=== PATIENT | female | born 1995 | race African-American/Black ===

== ENCOUNTER 2022-08-17 12:44 | Outpatient (CLI) | payer OTHER ==
--- NOTE | 2022-08-18 13:14 | MRI Report ---
PROCEDURE: BRAIN WO INDICATIONS: DIZZINESS TECHNIQUE: Noncontrast axial T1 spin echo, axial T2 fast spin echo, sagittal and axial FLAIR, coronal T2 fast sp in echo, axial gradient echo, axial diffusion and ADC through the brain. COMPARISON: None. FINDINGS: Image quality: Excellent. CSF Spaces: Basal cisterns are patent. No extra-axial fluid collections. Ventricles are normal in size and shape. Brain: No intracranial masses or hemorrhage. Otussaint/white matter interface is normal. Brainstem appe ars normal. Diffusion-weighted images demonstrate no acute ischemic insult. No chronic ischemic ins ults. Normal intravascular flow voids are present. In this patient with this given history, scrutiny is given to the cerebellopontine angle cisterns and to the internal auditory canals. To the limits of this standard protocol study, no masses can be see n within these regions. Skull and face: Calvarium has normal marrow signal. Orbits appear normal. Sinuses: Sinuses and mastoids are clear. IMPRESSION: No imaging explanation is found for the patient's presenting symptoms. Reviewed by: Des Jay MD on 08/18/2022 12:13 PM ALVINO Approved by: Des Jay MD on 08/18/2022 12:13 PM ALVINO Station ID: [id number]
== END 2022-08-17 12:45 | disposition home or self-care (01) ==
LOC: DI 12:44
PROVIDERS: ATTEND Physician Assistant
DX: R42 Dizziness and giddiness (principal); H55.89 Other irregular eye movements

== ENCOUNTER 2023-04-05 08:00 | Outpatient (CLI) | payer OTHER ==
[2023-04-06 10:03] LABS: BILIRUBIN,URINE NEGATIVE (NEGATIVE); CLARITY,URINE HAZY (CLEAR); GLUCOSE, URINE (UA) NEGATIVE (NEGATIVE); KETONES,URINE (UA) NEGATIVE (NEGATIVE); LEUKOCYTE ESTERASE, URINE NEGATIVE (NEGATIVE); NITRITE,URINE NEGATIVE (NEGATIVE); OCCULT BLOOD,URINE NEGATIVE (NEGATIVE); PROTEIN,URINE NEGATIVE (NEGATIVE); UROBILINOGEN,URINE 0.2 (NORMAL) E.U./dL (NORMAL)
[2023-04-06 10:22] LABS: BACTERIA,URINE Moderate /HPF (None Seen); CRYSTALS,URINE 3-5 Calcium Oxalate /LPF; RBC,URINE 0-5 /HPF (0-5); SQUAMOUS EPITHELIAL CELL,UR MOD Squamous (<= Few)
== END 2023-04-05 08:01 | disposition home or self-care (01) ==
LOC: LAB.WC 08:00
PROVIDERS: ATTEND Obstetrics & Gynecology
DX: Z34.90 Encounter for supervision of normal pregnancy, unspecified, unspecified trimester (principal)
CPT/HCPCS: 81001; 87086

== ENCOUNTER 2023-04-12 11:31 | Outpatient (CLI) | payer OTHER ==
[2023-04-12 12:22] LABS: BASOPHILS # (AUTO) 0.1 10^3/uL (0.0-0.1); BASOPHILS % (AUTO) 0.6 %; EOSINOPHILS # (AUTO) 0.1 10^3/uL (0.0-0.7); EOSINOPHILS % (AUTO) 0.6 %; HCT - HEMATOCRIT 36.1 % (37.0-47.0); HGB - HEMOGLOBIN 12.6 g/dL (12.0-16.0); LYMPHOCYTES # (AUTO) 2.5 10^3/uL (1.5-3.5); LYMPHOCYTES % (AUTO) 26.2 %; MEAN CORPUSCULAR HEMOGLOBIN 29.7 pg (27.0-31.0); MEAN CORPUSCULAR HGB CONC 34.9 g/dL (32.0-36.0); MEAN CORPUSCULAR VOLUME 85.1 fL (81.0-99.0); MEAN PLATELET VOLUME 9.6 fL (7.9-10.8); MONOCYTES # (AUTO) 0.7 10^3/uL (0.0-1.0); MONOCYTES % (AUTO) 7.4 %; NEUTROPHILS # (AUTO) 6.3 10^3/uL (1.5-6.6); NEUTROPHILS % (AUTO) 64.9 %; PLT - PLATELET COUNT 320 10^3/uL (130-450); RED BLOOD COUNT 4.24 10^6/uL (4.20-5.40); RED CELL DISTRIBUTION WIDTH 11.9 % (12.0-15.0); WHITE BLOOD COUNT 9.6 x10^3/uL (4.8-10.8)
--- NOTE | 2023-04-12 12:22 | Ultrasound Report ---
PROCEDURE: OB 1st Trimester w/TV INDICATIONS: POSITIVE TEST OUTSIDE/PRIOR DATING DATA: Last menstrual period (LMP): 02/06/2023. LMP-based estimated date of delivery (CARIDAD): 11/13/2023. First dating scan (date and location): Today's exam. Estimated date of delivery (CARIDAD) from first dating scan: 11/09/2023. TECHNIQUE: Real-time scanning was performed of the fetus and maternal pelvic organs, with image documentation. Endovaginal scanning was also performed to better visualize the fetus and maternal ovaries. COMPARISON: None. FINDINGS: Intrauterine gestational sac present. Embryo: Present, measuring 2.97 cm, corresponding to 9 weeks 6 days Heart rate: 136 bpm. Other: No perigestational fluid collection. Measurement variability in dating: +/- 4 weeks by LMP, +/- 7 days by mean sac diameter (use before 6 weeks gestation if crown-rump length not able to be measured), +/- 5 days by crown-rump length (6-12 weeks gestation). Maternal organs: Left ovary not visualized due to overlying bowel gas. Right-sided corpus luteum. IMPRESSION: Single living intrauterine at 9 weeks 6 days, CARIDAD of 11/09/2023. Reviewed by: Deepak Rodriguez MD on 04/12/2023 12:21 PM PST Approved by: Deepak Rodriguez MD on 04/12/2023 12:21 PM PST Station ID: [id number]
[2023-04-13 04:19] LABS: HBsAG SCREEN Negative (Negative)
[2023-04-13 06:12] LABS: RPR Non Reactive (Non Reactive)
[2023-04-13 09:10] LABS: HCV AB Non Reactive (Non Reactive); HIV SCREEN 4TH GENERATION Non Reactive (Non Reactive)
[2023-04-13 12:09] LABS: VARICELLA-ZOSTER AB IGG <135 index (Immune >165)
== END 2023-04-12 11:32 | disposition home or self-care (01) ==
LOC: DI 11:31
PROVIDERS: ATTEND Obstetrics & Gynecology
DX: Z34.91 Encounter for supervision of normal pregnancy, unspecified, first trimester (principal)
CPT/HCPCS: 36415; 85025; 86592; 86762; 86787; 86803; 86850; 86900; 86901; 87340; 87389

== ENCOUNTER 2023-05-03 08:00 | Outpatient (CLI) | payer OTHER ==
[2023-05-03 20:52] LABS: CHLAMYDIA TRACHOMATIS DNA NEGATIVE (NEGATIVE); NEISSERIA GONORRHOEAE DNA NEGATIVE (NEGATIVE); TRICHOMONAS VAGINALIS DNA NEGATIVE (NEGATIVE)
== END 2023-05-03 23:59 | disposition home or self-care (01) ==
LOC: LAB.WC 08:00
PROVIDERS: ATTEND Obstetrics & Gynecology
DX: Z11.3 Encounter for screening for infections with a predominantly sexual mode of transmission (principal)
CPT/HCPCS: 86695; 86696; 87491; 87591; 87661

== ENCOUNTER 2023-05-03 14:02 | Outpatient (CLI) | payer OTHER ==
[2023-05-04 10:09] LABS: HSV 1 IGG TYPE SPEC 9.25 index (0.00-0.90); HSV 2 IGG TYPE SPEC 9.57 index (0.00-0.90)
== END 2023-05-03 14:03 | disposition home or self-care (01) ==
LOC: LAB 14:02
PROVIDERS: ATTEND Obstetrics & Gynecology
DX: Z11.3 Encounter for screening for infections with a predominantly sexual mode of transmission (principal)
CPT/HCPCS: 86695; 86696

== ENCOUNTER 2023-05-31 14:10 | Outpatient (CLI) | payer OTHER ==
[2023-06-02 21:08] LABS: GEST. AGE ON COLLECTION DATE 16.3 weeks (.); INSULIN DEP DIABETES No (.); MATERNAL AGE AT EDD 28.8 yr (.); MULTIPLE GESTATION No (.); OPEN SPINA BIFIDA RISK 1 IN 2555 (.); RACE Black (.); RESULTS Report (.); TEST RESULTS *Screen Negative* (.); WEIGHT 139 lbs (.)
== END 2023-05-31 14:11 | disposition home or self-care (01) ==
LOC: LAB 14:10
PROVIDERS: ATTEND Obstetrics & Gynecology
DX: Z34.90 Encounter for supervision of normal pregnancy, unspecified, unspecified trimester (principal)
CPT/HCPCS: 36415; 82105

== ENCOUNTER 2023-06-27 08:08 | Outpatient (CLI) | payer OTHER ==
--- NOTE | 2023-06-27 17:32 | Ultrasound Report ---
PROCEDURE: OB Anatomy Scan INDICATIONS: SUPERVISION OF OUTSIDE/PRIOR DATING DATA: Last menstrual period (LMP): 02/06/2023. LMP-based estimated date of delivery (CARIDAD): 11/13/2023. First dating scan (date and location): 04/12/2023. Estimated date of delivery (CARIDAD) from first dating scan: 11/09/2023. The below data below was generated using the clinical CARIDAD of 11/13/2023 TECHNIQUE: Real-time scanning was performed of the fetus, with image documentation and biometric measurements. COMPARISON: 04/12/2023 FINDINGS: General: A single living intrauterine gestation is present. Presentation: Vert Placenta: Placental position is posterior, without previa. Amniotic fluid index: 13.6 cm, within normal limits for gestational age. heart rate: 143 beats per minute. Maternal cervical canal: 4.4 cm long; normal length is 2.5 cm or more. biometrics: Biparietal diameter: 5.0 cm 21 weeks 0 days 82nd percentile Head circumference: 18.0 cm 20 weeks 3 days 56th percentile Abdominal circumference: 15.1 cm 20 weeks 3 days 53rd percentile Femur length: 3.3 cm 20 weeks 1 day 43rd percentile Estimated gestational age from initial scan: 20 weeks 1 day Composite gestational age from present scan: 20 weeks 2 days Estimated weight and percentile: 347 g 56th percentile Measurement variability in biometric dating: +/- 10 days from 12-20 weeks gestation, +/- 2 weeks from 20-30 weeks gestation, +/- 3 weeks at 30 weeks gestation or later. Anatomic survey: Neuro: Ventricles are normal at less than 10 mm. Cisterna magna is normal at 3-11 mm. Cerebellum i s normal in size and morphology. Nuchal skin fold: Normal at less than 6 mm between 14 and 20 weeks gestational age. Face: Nose and lips, facial profile are normal. Spine: No evidence for spina bifida. Heart: 4-chambered heart is present, with normal ventricular outflow tracts. Diaphragm: Diaphragm is intact. Stomach: Left-sided stomach is present. Kidneys: No hydronephrosis. Normal is less than 5 mm in 2nd trimester, less than 7 mm in 3rd trimester. Cord: 3 vessel cord has orthotopic insertion. Bladder: Normal in size. Extremities: All 4 extremities are visualized. Miscellaneous right ovarian corpus luteal cyst. IMPRESSION: Single live intrauterine with gestational age of 20 weeks 2 days. Anatomy is within normal limits. Reviewed by: Gissel Duggan MD on 06/27/2023 5:31 PM PDT Approved by: Gissel Duggan MD on 06/27/2023 5:31 PM PDT Station ID: [id number]
== END 2023-06-27 08:09 | disposition home or self-care (01) ==
LOC: DI 08:08
PROVIDERS: ATTEND Obstetrics & Gynecology
DX: Z34.92 Encounter for supervision of normal pregnancy, unspecified, second trimester (principal); Z36.89 Encounter for other specified antenatal screening

== ENCOUNTER 2023-08-23 12:07 | Outpatient (CLI) | payer OTHER ==
[2023-08-23 13:18] LABS: HCT - HEMATOCRIT 35.3 % (37.0-47.0); HGB - HEMOGLOBIN 11.9 g/dL (12.0-16.0); MEAN CORPUSCULAR HEMOGLOBIN 30.2 pg (27.0-31.0); MEAN CORPUSCULAR HGB CONC 33.7 g/dL (32.0-36.0); MEAN CORPUSCULAR VOLUME 89.6 fL (81.0-99.0); MEAN PLATELET VOLUME 9.5 fL (7.9-10.8); RED BLOOD COUNT 3.94 10^6/uL (4.20-5.40); RED CELL DISTRIBUTION WIDTH 12.6 % (12.0-15.0); WHITE BLOOD COUNT 14.8 x10^3/uL (4.8-10.8)
[2023-08-24 08:10] LABS: RPR Non Reactive (Non Reactive)
== END 2023-08-23 12:08 | disposition home or self-care (01) ==
LOC: LAB 12:07
PROVIDERS: ATTEND Obstetrics & Gynecology
DX: Z34.90 Encounter for supervision of normal pregnancy, unspecified, unspecified trimester (principal)
CPT/HCPCS: 36415; 82950; 85027; 86592

== ENCOUNTER 2023-08-30 08:18 | Outpatient (CLI) | payer OTHER ==
[2023-08-30 09:19] LABS: GTT GLUCOSE,FASTING 81 mg/dL (74-109)
[2023-08-30 09:20] LABS: ALBUMIN 3.4 g/dL (3.2-5.5); BILIRUBIN,TOTAL 0.4 mg/dL (0.2-1.0); CALCIUM 9.5 mg/dL (8.5-10.3); CREATININE 0.6 mg/dL (0.6-1.3); POTASSIUM 3.7 mmol/L (3.5-4.5); TOTAL PROTEIN 6.7 g/dL (6.4-8.9)
[2023-08-30 09:57] LABS: ESTIMATED AVERAGE GLUCOSE 91 mg/dL (70-100); HEMOGLOBIN A1c% 4.8 % (4.27-6.07)
[2023-08-30 12:52] LABS: CREATININE,URINE 92.9 mg/dL; PROTEIN/CREATININE RATIO,URINE 0.1 (<=0.2)
[2023-08-31 05:13] LABS: RPR Non Reactive (Non Reactive)
== END 2023-08-30 08:19 | disposition home or self-care (01) ==
LOC: LAB 08:18
PROVIDERS: ATTEND Obstetrics & Gynecology
DX: O99.810 Abnormal glucose complicating pregnancy (principal)
CPT/HCPCS: 36415; 80053; 82570; 82951; 82952; 83036; 84156; 86592

== ENCOUNTER 2023-10-17 13:54 | Outpatient (CLI) | payer OTHER ==
--- NOTE | 2023-10-17 19:22 | Ultrasound Report ---
PROCEDURE: OB Follow up INDICATIONS: GESTATIONAL DIABETES MELLITUS OUTSIDE/PRIOR DATING DATA: Last menstrual period (LMP): 02/06/2023. LMP-based estimated date of delivery (CARIDAD): 11/13/2023. First dating scan (date and location): 04/12/2023. Estimated date of delivery (CARIDAD) from first dating scan: 11/09/2023. The below data below was generated using the working CARIDAD of 11/13/2023 TECHNIQUE: Real-time scanning was performed of the fetus, with image documentation and biometric measurements. Endovaginal scanning: Not performed. COMPARISON: 04/12/2023, 06/27/2023 FINDINGS: General: A single living intrauterine gestation is present. Presentation: Vertex Placenta: Placental position is fundal, without previa. Amniotic fluid index: 9.3 cm, within normal limits for gestational age. heart rate: 137 beats per minute. Maternal cervical canal: Closed and measures 3.6 cm long; normal length is 2.5 cm or more. biometrics: Biparietal diameter: 8.57 cm, 34 weeks, 4 days, 16.6% Head circumference: 31.0 cm, 34 weeks, 4 days, 3.1% Abdominal circumference: 30.6 cm, 34 weeks, 4 days, 18.2% Femur length: 6.8 cm, 35 weeks, 0 day, 18.1% Estimated gestational age from initial scan: 36 weeks, 1 day Composite gestational age from present scan: 34 weeks, 5 days Estimated weight and percentile: 2493 g, 16.6% Measurement variability in biometric dating: +/- 10 days from 12-20 weeks gestation, +/- 2 weeks from 20-30 weeks gestation, +/- 3 weeks at 30 weeks gestation or more. Other: Not applicable. IMPRESSION: 1. Single live intrauterine gestation with fetus in vertex presentation. heart rate is 1 37 bpm . Normal LUPILLO at 9.3 cm. 2. Estimated weight is at 16.6%. Reviewed by: Adrián Marc MD on 10/17/2023 7:20 PM PDT Approved by: Adrián Marc MD on 10/17/2023 7:20 PM PDT Station ID: [id number]
== END 2023-10-17 13:55 | disposition home or self-care (01) ==
LOC: DI 13:54
PROVIDERS: ATTEND Nurse Practitioner
DX: O24.419 Gestational diabetes mellitus in pregnancy, unspecified control (principal); Z3A.34 34 weeks gestation of pregnancy

== ENCOUNTER 2023-10-18 08:00 | Outpatient (CLI) | payer OTHER | END 2023-10-18 23:59 | disposition home or self-care (01) | LOC: LAB.WC 08:00 | PROVIDERS: ATTEND Obstetrics & Gynecology | DX: Z36.85 Encounter for antenatal screening for Streptococcus B (principal); R03.0 Elevated blood-pressure reading, without diagnosis of hypertension | CPT/HCPCS: 36415; 80053; 85027; 87797 ==

== ENCOUNTER 2023-10-18 13:55 | Outpatient (CLI) | payer OTHER ==
[2023-10-18 14:06] LABS: HCT - HEMATOCRIT 36.3 % (37.0-47.0); HGB - HEMOGLOBIN 12.2 g/dL (12.0-16.0); MEAN CORPUSCULAR HEMOGLOBIN 29.8 pg (27.0-31.0); MEAN CORPUSCULAR HGB CONC 33.6 g/dL (32.0-36.0); MEAN CORPUSCULAR VOLUME 88.5 fL (81.0-99.0); MEAN PLATELET VOLUME 10.1 fL (7.9-10.8); RED BLOOD COUNT 4.1 10^6/uL (4.20-5.40); RED CELL DISTRIBUTION WIDTH 13.2 % (12.0-15.0); WHITE BLOOD COUNT 10.6 x10^3/uL (4.8-10.8)
[2023-10-18 14:20] LABS: ALBUMIN 3.4 g/dL (3.2-5.5); ALBUMIN/GLOBULIN RATIO 1.1 (1.0-2.2); BILIRUBIN,TOTAL 0.4 mg/dL (0.2-1.0); CALCIUM 9.4 mg/dL (8.5-10.3); CREATININE 0.7 mg/dL (0.6-1.3); POTASSIUM 3.9 mmol/L (3.5-4.5); TOTAL PROTEIN 6.6 g/dL (6.4-8.9)
== END 2023-10-18 13:56 | disposition home or self-care (01) ==
LOC: LAB 13:55
PROVIDERS: ATTEND Obstetrics & Gynecology
DX: R03.0 Elevated blood-pressure reading, without diagnosis of hypertension (principal)
CPT/HCPCS: 36415; 80053; 85027

== ENCOUNTER 2023-10-21 10:10 | Outpatient (CLI) | payer OTHER ==
[2023-10-21 10:44] VITALS: BP 127/81
--- NOTE | 2023-10-21 11:24 | PROCEDURE REPORT ---
- HPI Diagnosis/Indication for NST: Other (Gestational diabetes, gestational hypertension) Current EDU 11/13/23 Gestation 36 Weeks and 5 Days 2 Para 0 Vital Signs Temperature 98.2 F 10/21/23 10:26 Heart Rate 80 10/21/23 10:26 Respiratory Rate 15 10/21/23 10:26 Blood Pressure 128/76 10/21/23 10:26 Temperature 98.2 F 10/21/23 10:26 Heart Rate 80 10/21/23 10:26 Respiratory Rate 15 10/21/23 10:26 Blood Pressure 127/81 H 10/21/23 10:41 O2 Saturation If not protocol: Oxygen Flow, liters/minute - NST Procedure NST Procedure Start Date 10/21/23 Start Time 10:22 Stop Time 10:43 Vibroacoustic Stimulation Used No Patient States Movement Yes - Results and Plan Findings/Impression: NST reactive, Cat 1. Plan: We discussed elevated blood pressures noted at visits, meeting criteria for gestational hypertension. She denies symptoms of preeclampsia, labs normal at visit earlier in the week. We discussed recommendation for delivery at 37 wks in the setting of gestational hypertension and risks/benefits were reviewed. We discussed induction process. She does agree to proceed with IOL and is scheduled for Monday. Consents were signed. Preeclampsia/labor precautions were reviewed.
== END 2023-10-21 11:39 | disposition home or self-care (01) ==
LOC: WFO 10:10 → FBP 10:25 → WFO 11:39
PROVIDERS: ATTEND Obstetrics & Gynecology
DX: O13.3 Gestational [pregnancy-induced] hypertension without significant proteinuria, third trimester (principal); O24.419 Gestational diabetes mellitus in pregnancy, unspecified control; Z3A.36 36 weeks gestation of pregnancy
CPT/HCPCS: 59025

== ENCOUNTER 2023-10-23 07:54 | Inpatient (IN) | payer OTHER ==
[2023-10-23] MEDS ORDERED: lidocaine 1% 20 ML MDV ID PRN (08:05)
[2023-10-23] MEDS ORDERED: CARBOPROST TROMETHAMINE 250 MCG/ML VIAL IM PRN (08:05)
[2023-10-23] MEDS ORDERED: miSOPROStoL 200 MCG TABLET BC PRN (08:05)
[2023-10-23] MEDS ORDERED: TRANEXAMIC ACID IN NACL 1,000 MG/100 ML BAG IV PRN (08:05)
[2023-10-23] MEDS ORDERED: SODIUM CHLORIDE FLUSH 0.9% 10 ML SYRINGE IVP PRN (08:05)
[2023-10-23] MEDS ORDERED: OXYTOCIN 10 UNIT/ML VIAL IM PRN (08:05)
[2023-10-23] MEDS ORDERED: OXYTOCIN/SODIUM CHLORIDE 500 ML IV PRN (08:05)
[2023-10-23] MEDS ORDERED: METHYLERGONOVINE 0.2 MG/ML VIAL IM PRN (08:05)
[2023-10-23] MEDS ORDERED: ONDANSETRON 4 MG/2 ML VIAL IVP PRN (09:18)
[2023-10-23 10:20] LABS: BASOPHILS % (AUTO) 0.2 %; EOSINOPHILS # (AUTO) 0.1 10^3/uL (0.0-0.7); EOSINOPHILS % (AUTO) 0.6 %; HCT - HEMATOCRIT 39.9 % (37.0-47.0); HGB - HEMOGLOBIN 13.4 g/dL (12.0-16.0); LYMPHOCYTES # (AUTO) 2.1 10^3/uL (1.5-3.5); LYMPHOCYTES % (AUTO) 18.8 %; MEAN CORPUSCULAR HEMOGLOBIN 29.7 pg (27.0-31.0); MEAN CORPUSCULAR HGB CONC 33.6 g/dL (32.0-36.0); MEAN CORPUSCULAR VOLUME 88.5 fL (81.0-99.0); MEAN PLATELET VOLUME 10.1 fL (7.9-10.8); MONOCYTES # (AUTO) 0.8 10^3/uL (0.0-1.0); MONOCYTES % (AUTO) 7.5 %; NEUTROPHILS # (AUTO) 7.9 10^3/uL (1.5-6.6); NEUTROPHILS % (AUTO) 72.2 %; PLT - PLATELET COUNT 249 10^3/uL (130-450); RED BLOOD COUNT 4.51 10^6/uL (4.20-5.40); RED CELL DISTRIBUTION WIDTH 13.5 % (12.0-15.0)
[2023-10-23] MEDS: miSOPROStoL 100 MCG TABLET VG SCH (10:29)
[2023-10-23 10:30] LABS: CREATININE,URINE 43.8 mg/dL; PROTEIN/CREATININE RATIO,URINE 0.2 (<=0.2)
[2023-10-23 10:34] LABS: ALBUMIN 3.6 g/dL (3.2-5.5); BILIRUBIN,TOTAL 0.5 mg/dL (0.2-1.0); CREATININE 0.7 mg/dL (0.6-1.3); POTASSIUM 3.7 mmol/L (3.5-4.5); TOTAL PROTEIN 7.3 g/dL (6.4-8.9)
--- NOTE | 2023-10-23 10:54 | PHARMACY PROGRESS NOTE ---
- Best Possible Medication History Admit Date and Time: 10/23/23 0805 Processed by: Pharmacy Medications reviewed in ED?: No Medication History completed: Yes Patient Interview: Completed Secondary Source(s): Insurance records (Medication Reconciliation completed by [employer].) As the person ultimately responsible for medication therapy, providers are able to order a medication from an existing home medication list in [facility] via the "Reconcile Routine" prior to Confirmation of that medication by biomedical equipment support specialist. Such practice is discouraged except when the physician, in their clinical judgment, deems that a medical need exists for a medication without regard to previous use.
[2023-10-23] MEDS: SODIUM CHLORIDE FLUSH 0.9% 10 ML SYRINGE IVP SCH (12:16)
--- NOTE | 2023-10-23 17:23 | ANESTHESIA ---
Pre-Anesthesia VS, & Labs - Diagnosis Induction of labor - Procedure Vaginal delivery Vital Signs: Temp Pulse Resp BP Pulse Ox O2 Flow Rate 36.6 C 82 18 124/76 10/23/23 08:06 10/23/23 08:06 10/23/23 08:06 10/23/23 08:06 Height: 5 ft Weight (kg): 71.214 kg Body Mass Index: 30.7 BMI Classification: Obese - NPO Last Fluid Intake: clear liquids - Is Patient ?: Yes - Lab Results Current Lab Results: Laboratory Tests 10/23/23 14:23: POC Whole Bld Glucose 114 H 10/23/23 10:03: Sodium 136, Potassium 3.7, Chloride 104, Carbon Dioxide 23, Anion Gap 9.0, BUN 11, Creatinine 0.7, Estimated GFR (MDRD) 121, Glucose 158 H, Calcium 10.0, Total Bilirubin 0.5, AST 20, ALT 30, Alkaline Phosphatase 270 H, Total Protein 7.3, Albumin 3.6, Globulin 3.7, Albumin/Globulin Ratio 1.0 10/23/23 10:03: WBC 11.0 H, RBC 4.51, Hgb 13.4, Hct 39.9, MCV 88.5, MCH 29.7, MCHC 33.6, RDW 13.5, Plt Count 249, MPV 10.1, Neut # (Auto) 7.9 H, Lymph # (Auto) 2.1, [place] # (Auto) 0.8, Eos # (Auto) 0.1, Baso # (Auto) 0.0, Absolute Nucleated RBC 0.00, Nucleated RBC % 0.0 10/23/23 10:03: Blood Type O POSITIVE, Antibody Screen NEGATIVE Lab results reviewed: Yes Fish Bones: 10/23/23 10:03 10/23/23 10:03 Home Medications and Allergies Home Medications: Ambulatory Orders Cholecalciferol (Vitamin D3) [Vitamin D3] 25 mcg PO DAILY 10/23/23 valACYclovir [Valtrex] 500 mg PO BID 10/23/23 Active Medications Carboprost Tromethamine (Carboprost Tromethamine 250 Mcg/Ml Vial) 250 mcg IM Q15M PRN PRN Reason: Step 4: Hemorrhage protocol Fentanyl (Fentanyl 100 Mcg/2 Ml Vial) 50 mcg IVP Q2HR PRN PRN Reason: Severe Pain (Level 7-10) Oxytocin/Sodium Chloride (Pitocin/Sodium Chloride) 500 mls @ 999 mls/hr IV PRN PRN; Protocol PRN Reason: POST- HEMORR PREVENTION Stop: 10/28/23 08:06 Tranexamic Acid (Tranexamic 1,000 Mg/100ml-Nacl) 1,000 mg in 100 mls @ 600 mls/hr IV .ONCE PRN PRN Reason: EBL >1200mL and within 3hr Stop: 10/28/23 08:06 Lidocaine HCl (Lidocaine 1% 20 Ml Mdv) 20 ml ID .ONCE PRN PRN Reason: PERINEAL REPAIR Stop: 10/28/23 08:06 Methylergonovine Maleate (Methylergonovine 0.2 Mg/Ml Vial) 0.2 mg IM .ONCE PRN PRN Reason: Step 2: Hemorrhage protocol Stop: 10/28/23 08:06 Misoprostol (Misoprostol 200 Mcg Tablet) 800 mcg BC .ONCE PRN PRN Reason: Step 3: Hemorrhage protocol Stop: 10/28/23 08:06 Misoprostol (Misoprostol 100 Mcg Tablet) 25 mcg VG Q4H [facility] Last Admin: 10/23/23 14:17 Dose: 25 mcg Ondansetron HCl (Ondansetron 4 Mg/2 Ml Vial) 4 mg IVP Q4HR PRN PRN Reason: Nausea / Vomiting Oxytocin (Oxytocin 10 Unit/Ml Vial) 10 unit IM .ONCE PRN PRN Reason: Step one: If no IV access Stop: 10/28/23 08:06 Sodium Chloride (Sodium Chloride Flush 0.9% 10 Ml Syringe) 10 ml IVP 0100,0900,1700 [facility] Last Admin: 10/23/23 12:16 Dose: Not Given Sodium Chloride (Sodium Chloride Flush 0.9% 10 Ml Syringe) 10 ml IVP PRN PRN PRN Reason: NEEDED PER PROVIDER ORDERS Pnv No.121/Iron/Folic Acid [ Multivitamin Tablet] 1 each PO DAILY 10/17/23 Cholecalciferol (Vitamin D3) [Vitamin D3] 25 mcg PO DAILY 10/23/23 valACYclovir [Valtrex] 500 mg PO BID 10/23/23 Allergies/Adverse Reactions: Allergies Allergy/AdvReac Type Severity Reaction Status Date / Time No Known Drug Allergies Allergy Verified 10/17/23 12:43 Anes History & Medical History - Anesthetic History Anesthesia Complications: reports: No previous complications - Medical History Cardiovascular: reports: Other (gestational hypertension) Pulmonary: reports: None Gastrointestinal: reports: None Urinary: reports: None Neuro: reports: None Musculoskeletal: reports: None Endocrine/Autoimmune: reports: Other (Gestational diabetes) Blood Disorders: reports: None Skin: reports: None Smoking Status: Never smoker Psychosocial: reports: No issues indicated History of Cancer?: No - Surgical History General: reports: Other (hernia repair as a child) - Obstetrical History : 2 Parity: 0 Events: reports: Gestational diabetes Exam General: Alert, Oriented x3, Cooperative, No acute distress Dental: WNL Mouth Openin Fingerbreadth Neck Mobility: Normal Mallampati classification: II Thyromental Distance: 4-6 cm Mental/Cognitive Status: Alert/Oriented X3, Normal for patient Plan Anesthesia Type: Epidural Consent for Procedure(s) Verified and Reviewed: Yes Code Status: Attempt Resuscitation ASA classification: 2-Mild systemic disease Is this case an emergency?: No
--- NOTE | 2023-10-23 21:45 | HISTORY & PHYSICAL EXAMINATION ---
Admit History - Visit Reason Visit Reason: Other (induction for preeclampsia) - : 2 : 1 Care: positive: [facility] Risk/History: positive: None Complications This : positive: None, induced HTN Smoking Status: Never smoker - Mother's Labs GBS: positive: Group B Step Negative Rubella Status: positive: Immune - Other Maternal History Other Maternal History: presents today for labor induction at 37w 0d. labs normal. no PIH sx but bps have been sporadically elevated during 3rd trimester. Up again last visit on so here for induction today now that she is 37 weeks. consents reviewed and signed with Dr. Knox on . no headache, n/v. good movement. not swollen. last ultrasound done 10/17/23, report reviewed: FINDINGS: General: A single living intrauterine gestation is present. Presentation: Vertex Placenta: Placental position is fundal, without previa. Amniotic fluid index: 9.3 cm, within normal limits for gestational age. heart rate: 137 beats per minute. biometrics: Biparietal diameter: 8.57 cm, 34 weeks, 4 days, 16.6% Head circumference: 31.0 cm, 34 weeks, 4 days, 3.1% Abdominal circumference: 30.6 cm, 34 weeks, 4 days, 18.2% Femur length: 6.8 cm, 35 weeks, 0 day, 18.1% Estimated gestational age from initial scan: 36 weeks, 1 day Composite gestational age from present scan: 34 weeks, 5 days Estimated weight and percentile: 2493 g, 16.6% No Known Allergies Medications: Meds Reviewed: Done Valtrex 500 mg tablet (valacyclovir) TAKE 1 TABLET BY MOUTH TWICE A DAY * Vitamin * glucose test strips for qid testing for the rest of Blood Glucose Monitoring kit (blood-glucose meter) gestational diabetes, for qid testing for rest of Lancets, Super Thin (lancets) for qid testing for rest of Sharps Container (empty container) for use for lancet disposal cholecalciferol (vitamin D3) 50 mcg (2,000 unit) capsule (cholecalciferol (vitamin d3)) 1 capsule by mouth once a day Problems: Elevated blood pressure reading without diagnosis of hypertension (ICD-796.2) (MDW23-M44.0) then gestational hypertension screening for streptococcus B (ICD-V28.6) (IUP71-Z04.85) Gestational diabetes mellitus in , unspecified control (CQR73-U01.419) 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 not too sick. varicella non-immune Past Surgical History: umbilical Hernia repair at 5yo Vital Signs: Patient Profile: 28 Years Old Female Height: 60 inches Weight: 161 pounds BMI: 31.56 BP sittin / 74 Cuff size: regular Vitals Entered By: Yasmin FIERRO (October 18, 2023 1:00 PM) Meds Reviewed: Done Allergies Reviewed: Done No known allergies: T Urinalysis (Dipstick) Color: yellow Appearance: clear Leukocytes: negative Nitrites: negative Urobilinogen: negative Protein: negative Blood: negative Ketones: negative Bilirubin: negative Glucose: negative Method of Collection: Clean Catch Urine Culture Sent: No Patient on antibiotic: No Urine Results Entered By: Ellie Orellana RN (October 18, 2023 1:58 PM) Serial Vital Signs/Assessments: Time Position BP Pulse Resp Temp By 1:17 PM 137/67 Ellie Orellana RN 1333 133/65 Ellie Orellana RN Comments: 1333 Provider notified By: Ellie Orellana RN Flowsheet View for Follow-up Visit Estimated weeks of gestation: 36 2/7 Weight: 161 Blood pressure: 140 / 74 Urine Protein: negative Urine Glucose: negative Urine Nitrite: negative Urine Leuks: negative Headache: No Nausea/vomiting: No Edema: 0 FHR: NST Vaginal bleeding: no Vaginal discharge: no activity: yes Labor symptoms: no Next visit: 1 wk Comment: Reports she is feeling well, no concerns. Single mildly elevated BP today (140/74, repeated x2 and normal range). Urine negative for protein. Denies LIMA, vision changes, upper abdominal pain. Minimal swelling. Will go to lab for CBC, CMP. She also had elevated BPs at visits at 20 and 30wks, concerning for possible gHTN. Preeclampsia precautions reviewed. We have discussed possible delivery at 37wk. Ellie, RN will arrange NST for Sat on L&D and we can discuss IOL further at that time. BG log reviewed, overall doing well. No fasting values elevated, 08/23 postprandial values elevated. Growth US report reviewed, EFW 16%tile, vertex, normal LUPILLO. She is taking valtrex. GBS collected. - KML LMP: 02/06/23 CARIDAD by LMP: 11/13/23 US:04/22/2023 @ 9+6 CARIDAD by US 11/08 Final CARIDAD: 11/13/2023 by LMP Ayden is in [place], has 2 more years. Originally from [place]. FOB: Justin, just out of [employer] and going to [employer]. Together 2 years. 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 Will plan on prophylaxis at 34 to 36 weeks. A1DM Pre- Weight:137.4 BMI: 26.93 Blood type: O+ Antibody: Negative CBC: H/H 12.6/36.1 plt 320 RUB:Immune VZV:NON IMMUNE, informed. HBsAg: NEG HepC: NR RPR/AB-EIA: NR HIV:NR PAP:05/18/2020- DUE GC/CT:05/03 negative HSV: IgG 1 and 2 + 05/04/23. FOB + Genetic testing: AFP- negative Covid:X3 vax and had virus. declined spikevax Flu:2022 [facility] FAS:completed 06/26 Placenta: Posterior w/o previa Cord:3VC LUPILLO: 13.6 EFW: 347g 56th%ile 50gm OGCT:175 A1c 4.8 3HR GTT: 81 199, 182, 154- fail TDAP:08/22 Breast Pump:08/06 RPR- Negative 3rd trimester H/H 11.9/35.3 PLT - 245 GBS: Delivery plan: induction for gest htn Contraception: A: 1 IAB: 1 LMP: 02/06/2023 EDC: 11/13/2023 Height: 60 (10/11/2023 10:36:57 AM) Weight: 161 Weight (pre-): 137.4 (04/05/2023 1:36:47 PM) Chlamydia: NEGATIVE (05/03/2023 1:20:00 PM) Blood Type: O+ (04/12/2023 9:51:54 AM) RH Type: + (04/12/2023 9:52:04 AM) Last Antibody Screen: negative (04/12/2023 9:52:14 AM) Is pt sexually active? yes Chlamydia: NEGATIVE (05/03/2023 1:20:00 PM) RPR: Non Reactive (08/30/2023 8:38:00 AM) Last Pap: Normal (05/18/2020 10:55:09 AM) - HPI Current EDU 11/13/23 Gestation 37 Weeks and 0 Days 2 Vital Signs Temperature 97.9 F 10/23/23 08:06 Heart Rate 82 10/23/23 08:06 Respiratory Rate 18 10/23/23 08:06 Blood Pressure 124/76 10/23/23 08:06 Temperature 97.9 F 10/23/23 08:06 Heart Rate 82 10/23/23 08:06 Respiratory Rate 18 10/23/23 08:06 Blood Pressure 124/76 10/23/23 08:06 O2 Saturation If not protocol: Oxygen Flow, liters/minute - NST Procedure NST Procedure Start Time 10:22 Stop Time 10:43 - Results and Plan Findings/Impression: Reactive for of 32 weeks gestation or more. NST tracing contains at least two heart rate accelerations that are at least 15 beats per minute above the baseline rate and lasting at least 15 seconds from onset to return to baseline within a twenty minute period. Plan: proceed with labor induction Meds/Allgy - Home Medications Home Medications: Ambulatory Orders Medication Instructions Recorded Confirmed Pnv No.121/Iron/Folic Acid 1 each PO DAILY 10/17/23 10/23/23 [ Multivitamin Tablet] Cholecalciferol (Vitamin D3) 25 mcg PO DAILY 10/23/23 10/23/23 [Vitamin D3] valACYclovir [Valtrex] 500 mg PO BID 10/23/23 10/23/23 - Allergies Allergies/Adverse Reactions: Allergies Allergy/AdvReac Type Severity Reaction Status Date / Time No Known Drug Allergies Allergy Verified 10/17/23 12:43 Physical - Abdominal Exam Vital Signs: Temp Pulse Resp BP Pulse Ox O2 Flow Rate 97.9 F 82 18 124/76 10/23/23 08:06 10/23/23 08:06 10/23/23 08:06 10/23/23 08:06 Contraction Frequency (min/apart): irregular when she came in about every 7 min and not feeling them. Contraction Intensity: positive: Mild Uterine Resting Tone: positive: Soft - Monitoring Strip Review: positive: Category I - Presentation Presentation: positive: Vertex - Vaginal Exam Membranes: positive: Membranes intact Dilation (in cm): 4 Effacement (%): 100 Station: positive: -1 Cervical Position: positive: Midposition - Speculum Exam Speculum Exam Performed: positive: No - Other Notes Labor Progress Note/Additional Text: She has received miso x 2. she was haresh too much for more. I checked her at 6 pm. She was 4/80/-1 soft. uncomfortable with my exam. Since then she continues to be uncomfortable with frequent contractions. Plan for Labor - Plan For Labor I expect patient to be DC'd or transferred within 96 hours.: Yes Plan for Labor: once her partner returns from getting dinner, I will perform AROM and then augm ent with pitocin as needed. epidural prn. GBS neg gestational htn: continue to monitor bp. no severe range pressures. no elevated labs or preE sx. so no magnesium indicated for now. HSV - continue valtrex gdm - will check sugars every 4 hrs for now. every 2 in active labor. never required treatment.
--- NOTE | 2023-10-23 22:14 | PROVIDER PROGRESS NOTE ---
Labor Progress Note - Uterine Monitoring Uterine Monitoring Mode: positive: External toco Contraction Frequency (min/apart): 3 Contraction Intensity: positive: Mild to moderate Uterine Resting Tone: positive: Soft - Monitoring Monitor Mode: positive: External ultrasound Heart Rate Baseline: 135 Heart Rate Variability: positive: Moderate (6-25 bmp) Accelerations: positive: Present, 15x15 Decelerations: positive: None Strip Review: positive: Category I - Vaginal Exam Station: -2 (unable to reach to get my fingers into cervix.) - Labor Progress Note Labor Progress Note/Additional Text: took a bath and now contractions are uncomfortable but not painful. maybe could rest. cervix too posterior to reach. so unable to perform AROM plan: let her try to sleep. if unable to sleep or if contraction really slow down, start pitocin. epidural whenever she wants. bps are good. sugar fine. baby category 1. no sx of preE.
[2023-10-23] MEDS: valACYclovir 500 MG TABLET PO SCH (22:25)
[2023-10-24] MEDS: fentaNYL 100 MCG/2 ML VIAL IVP PRN (00:05)
[2023-10-24] MEDS: OXYTOCIN/SODIUM CHLORIDE 500 ML IV SCH (03:05)
[2023-10-24] MEDS: CHOLECALCIFEROL 25 MCG TABLET PO SCH (09:00)
[2023-10-24] MEDS: PRENATAL VITAMIN TABLET PO SCH (09:00)
--- NOTE | 2023-10-24 10:36 | PROVIDER PROGRESS NOTE ---
Labor Progress Note - Uterine Monitoring Contraction Intensity: positive: Mild to moderate Uterine Resting Tone: positive: Soft - Monitoring Monitor Mode: positive: External ultrasound Heart Rate Variability: positive: Moderate (6-25 bmp) Accelerations: positive: Present, 15x15 Decelerations: positive: None Strip Review: positive: Category I - Vaginal Exam Dilation (in cm): 5 Effacement (%): 80 Station: -2 Cervical Position: Posterior - Labor Progress Note Labor Progress Note/Additional Text: AROM with clear fluid. pitocin at 8. not painful with her contractions. but they are quite regular and have not done much in the last 18 hours. bps stable. sugars stable. plan: continue pitocin dosing as needed. hopefor later this afternoon.
[2023-10-24] MEDS ORDERED: LACTATED RINGERS 1,000 ML ONE (10:51)
[2023-10-24] MEDS: LACTATED RINGERS 1,000 ML IV ONE (10:53)
[2023-10-24] MEDS ORDERED: ROPIVACAINE 0.2% 200 MG/100 ML BAG EP ONE (11:12)
[2023-10-24] MEDS ORDERED: LIDOCAINE 2%-EPI 1:100000 20 ML MDV ONE (11:26)
[2023-10-24] MEDS ORDERED: ROPIVACAINE 0.2% 200 MG/100 ML BAG EP PRN (12:07)
[2023-10-24] MEDS ORDERED: ePHEDrine 50 MG/ML VIAL IVP PRN (12:07)
[2023-10-24] MEDS ORDERED: NALBUPHINE 10 MG/ML AMP IVP PRN (12:07)
[2023-10-24] MEDS ORDERED: diphenhydrAMINE INJ 50 MG/ML VIAL IVP PRN (12:07)
[2023-10-24] MEDS ORDERED: METOCLOPRAMIDE 10 MG/2 ML VIAL IVP PRN (12:07)
[2023-10-24] MEDS ORDERED: ONDANSETRON 4 MG/2 ML VIAL IVP PRN (12:07)
[2023-10-24] MEDS ORDERED: NALOXONE 0.4 MG/ML VIAL IVP PRN (12:07)
[2023-10-24] MEDS ORDERED: LIDOCAINE-MPF 1% 5 ML VIAL ONE (15:19)
[2023-10-24] MEDS: LACTATED RINGERS 1,000 ML IV SCH (15:23)
[2023-10-24] MEDS ORDERED: LIDOCAINE-MPF 2% 5 ML VIAL ONE (16:23)
[2023-10-24] MEDS ORDERED: WITCH HAZEL/GLYCERIN 1 PAD TOP PRN (18:20)
[2023-10-24] MEDS ORDERED: ACETAMINOPHEN 325 MG TABLET PO PRN (18:20)
--- NOTE | 2023-10-24 18:33 | DELIVERY NOTE ---
Delivery Note - Labor Labor: positive: Induced by oxytocin - Infant Delivery Method Delivery Method: positive: Spontaneous vaginal delivery - Cervical Ripening Method Cervical Ripening Method: positive: Misoprostil - Presentation Presentation: positive: Vertex - Nuchal Cord Nuchal Cord: positive: None - Anesthetic Anesthetic Type: - Episiotomy Type Episiotomy Type: positive: None - Laceration Laceration: positive: 1st degree, Labial, Perineal, Periurethral - Suture Suture Type: positive: Vicryl Suture Size: positive: 3-0 - Delivery Outcome Delivery Outcome: positive: Livebirth - sex: positive: Male - Cord Cord: positive: 3 vessels - Placenta Placenta: positive: Intact, Spontaneous - Estimated Blood Loss Estimated Blood Loss (in cc): 200 - Post Delivery Events Post Delivery Events: positive: No post delivery events - Delivery Comments (Free Text/Narrative) Delivery Comments (Free Text/Narrative): Patient presented for labor induction due to dx of gestational Htn at 37 weeks. no severe range bps or sx. labs normal. Once admitted, received miso x 3 vaignally 25 mcg. caused her some loose stool. Then she was haresh too much for more miso. took a bath, slept a while then oxytocin was started. in am AROM was performed. she was 5 cm. received epidural for pain management. oxytocin turned up to 10. Soon she was ready to push. we got her ready for delivery and she pushed for about 17 min to deliver her baby in OA position. FOB helped me deliver the baby and announce the baby's name and thus to the gender to Ayden and her family who was on the video phone in [place]. Baby is a boy. Cord was clamped and cut once there was a gush of blood from the vagina. Apgars were good, although RN did take baby to warmer to look at him better. She brought him back after about 5 min. Weight is still pending. Placenta delivered spontaneously. Oxytocin was infused in the IV bolus then turned down as uterus was contracted well and not bleeding. perineum has a small laceration, first degree. One mattress type stitch of 3-0 Vicryl Rapide was placed. there where bilateral periurethral/labia minora lacerations and these were not repaired as they were not bleeding and were quite superficial. EBL about 200 cc. no complications. Patient is resting with her baby boy Michael and partner.
[2023-10-25] MEDS: IBUPROFEN 600 MG TABLET PO SCH (00:37)
[2023-10-25] MEDS: DOCUSATE SODIUM 100 MG CAPSULE PO SCH (00:39)
--- NOTE | 2023-10-25 12:35 | PROVIDER PROGRESS NOTE ---
Subjective - Prog Note Date Prog Note Date: 10/25/23 Prog Note Time: 12:00 - Subjective Pt reports feeling: Improved Subjective: Comfortable. Appropriate lochia. Ambulating. Voiding. Tolerating regular diet. . Mood is good. Objective - Vital Signs/Intake & Output Vital Signs: Vital Signs x48h Temp Pulse Resp BP Pulse Ox 10/25/23 08:29 98.2 F 91 18 134/78 H 96 Intake & Output: Intake & Output 10/22/23 10/23/23 10/24/23 10/25/23 23:59 23:59 23:59 23:59 Intake Total 1200 1202.083 Output Total 350 Balance 1200 852.083 - Lab Results Fish Bones: 10/23/23 10:03 10/23/23 10:03 Other Labs: Lab Results x24hrs 10/24/23 Range/Units 12:59 POC Whole Bld Glucose 91 (70 - 100) mg/dL Assessment/Plan - Problem List (1) care following vaginal delivery Impression: 28yo s/p 10/24/23 following IOL for GHTN, PPD#1 - Routine care - Anticipate discharge tomorrow (2) Gestational hypertension Impression: - Currently normotensive, asymptomatic - Repeat CBC and CMP in am, continue to monitor BPs
[2023-10-26 06:17] LABS: BASOPHILS # (AUTO) 0.1 10^3/uL (0.0-0.1); BASOPHILS % (AUTO) 0.4 %; EOSINOPHILS # (AUTO) 0.1 10^3/uL (0.0-0.7); EOSINOPHILS % (AUTO) 0.8 %; HCT - HEMATOCRIT 36.7 % (37.0-47.0); HGB - HEMOGLOBIN 12.2 g/dL (12.0-16.0); LYMPHOCYTES # (AUTO) 3.4 10^3/uL (1.5-3.5); LYMPHOCYTES % (AUTO) 21.9 %; MEAN CORPUSCULAR HEMOGLOBIN 29.6 pg (27.0-31.0); MEAN CORPUSCULAR HGB CONC 33.2 g/dL (32.0-36.0); MEAN CORPUSCULAR VOLUME 89.1 fL (81.0-99.0); MEAN PLATELET VOLUME 10.1 fL (7.9-10.8); MONOCYTES # (AUTO) 1.3 10^3/uL (0.0-1.0); NEUTROPHILS # (AUTO) 10.7 10^3/uL (1.5-6.6); NEUTROPHILS % (AUTO) 68.1 %; PLT - PLATELET COUNT 230 10^3/uL (130-450); RED BLOOD COUNT 4.12 10^6/uL (4.20-5.40); RED CELL DISTRIBUTION WIDTH 13.8 % (12.0-15.0); WHITE BLOOD COUNT 15.7 x10^3/uL (4.8-10.8)
[2023-10-26 06:34] LABS: ALBUMIN 3.2 g/dL (3.2-5.5); ALBUMIN/GLOBULIN RATIO 1.1 (1.0-2.2); BILIRUBIN,TOTAL 0.4 mg/dL (0.2-1.0); CREATININE 0.7 mg/dL (0.6-1.3); POTASSIUM 3.9 mmol/L (3.5-4.5); TOTAL PROTEIN 6.1 g/dL (6.4-8.9)
--- NOTE | 2023-10-26 10:25 | DISCHARGE SUMMARY ---
"Discharge Summary Admit Date: 10/23/23 Discharge Date: 10/26/23 Discharging Provider: Tr Knox MD Code Status: Attempt Resuscitation Condition at Discharge: Good Discharge Disposition: 01 Home, Self Care - DIAGNOSES Admission Diagnoses: SIUP @ 37w0d Gestational hypertension Discharge Diagnoses with Status of Each Condition: Same, delivered - CONSULTS | PROCEDURES Procedures: with repair of 1st degree laceration, EBL 200cc - HOSPITAL COURSE Hospital Course: Ayden is a 28 yo who presented at 37w0d for IOL for gestational hypertension. She received misoprostol for cervical ripening followed by pitocin and AROM. She had an uncomplicated with repair of first degree laceration, EBL 200cc. Her course has been uncomplicated. Blood pr essures well controlled and has remained asymptomatic for preeclampsia with normal labs. Today, Ayden reports she is feeling well, no concerns. Pain is well controlled. She is ambulating and urinating without difficulty. She is . Reports bleeding is minimal. Denies LIMA, vision changes, upper abdominal pain, CP, SOB. Feels ready for discharge today. - ALLERGIES Allergies/Adverse Reactions: Allergies Allergy/AdvReac Type Severity Reaction Status Date / Time No Known Drug Allergies Allergy Verified 10/17/23 12:43 - MEDICATIONS Home Medications: Ambulatory Orders Medication Instructions Recorded Confirmed Pnv No.121/Iron/Folic Acid 1 each PO DAILY 10/17/23 10/23/23 [ Multivitamin Tablet] Cholecalciferol (Vitamin D3) 25 mcg PO DAILY 10/23/23 10/23/23 [Vitamin D3] valACYclovir [Valtrex] 500 mg PO BID 10/23/23 10/23/23 Acetaminophen [Tylenol] 650 mg PO Q4HR PRN tab 10/26/23 Cholecalciferol [Vitamin D3] 25 mcg PO DAILY tab 10/26/23 Docusate Sodium 100Mg Capsule 100 mg PO BID cap 10/26/23 [Colace 100Mg Capsule] Ibuprofen [Motrin] 600 mg PO Q6H tab 10/26/23 Witch Mariajose/Glycerin [Tucks] 1 pad TOP QID PRN each 10/26/23 - PHYSICAL EXAM AT DISCHARGE Physical Exam Other/Comments: Gen: NAD, sitting on edge of bed eating breakfast Chest: non labored respirations Abd: soft, non tender, fundus firm Ext: trace LE edema, no evidence of DVT - LABS Result Diagrams: 10/26/23 05:56 10/26/23 05:56 - FOLLOW UP Follow Up: [facility] follow up. Reviewed / Discussed home care instructions and medications. Patient counseled regarding signs and symptoms of infection, excessive bleeding, vaginal rest and activity restrictions. Preeclampsia precautions reviewed. Will contact clinic if additional support needed."
[2023-10-26 14:41] VITALS: BP 127/79; O2SAT 100
--- NOTE | 2023-10-26 14:43 | Labor Flowsheet ---
Labor Flowsheet Datetime Report Generated by CPN: 10/26/2023 14:43 Datetime: 10/25/2023 02:05 VITAL SIGNS NBP Sys/Brinda/Mean (mmHg): 130 : 70 : 84 Pulse: 88 Datetime: 10/24/2023 19:15 Respirations: 18 Temperature Route: Oral Datetime: 10/24/2023 18:32 Temperature (C): 36.8 Datetime: 10/24/2023 18:00 Stage of : Recovery Datetime: 10/24/2023 17:43 STAGE 2 Pushing: Urge to Push Pushing Position: Pushing with Contractions Pushing Progress: Descent with Pushing Datetime: 10/24/2023 17:20 UTERINE ACTIVITY Monitor Mode: External Monitor Interventions for UA: Gisela Adjusted Frequency (min): 2 Quality: Strong Duration (sec): 60-80 Pattern: Normal: <= 5 Contractions in 10 Minutes Resting Tone (Palpate): Relaxed Pitocin Checklist: At Least 1 Acceleration of 15 bpm x 15 Seconds in 30 Minutes or Adequate Variabi lity; No More than 1 Late Deceleration Occurred in Past 30 Minutes; No More than 2 Variable Decelerat ions > 60 Seconds in Duration and decreasing >60 bpm in 30 minutes; No More than 5 Uterine Contractio ns in 10 Minutes for any 20 Minute Interval; Uterus Palpates Soft between Contractions ASSESSMENT A Monitor Mode: Telemetry FHR Baseline Rate : 130 FHR Baseline Changes: No Baseline Change Variability: Moderate 6-25 bpm Accelerations: 15X15 Decelerations: Variable VAGINAL EXAM Dilatation (cm): 10.0 Effacement (%): 100 Station: 0 Exam by: Joycelyn Harrington RN Vaginal Bleeding: Scant Cervix, Consistency: Soft Cervix, Position: Anterior Vaginal Exam Comments: anterior lip Datetime: 10/24/2023 17:00 LaborFlag: Labor Datetime: 10/24/2023 16:25 COMMUNICATION Communication: Call/Page Placed to Provider Provider Notified (Name): Anes. notified patient is uncomfortable, will be right over Datetime: 10/24/2023 16:00 PAIN Pain Scale: 8 Pain Presence: Intermittent Pain Type: Sharp; Contraction; Pressure Pain Location: Abdomen Pain Assessment Comments: calling anes. Patient Position/Activity: Semi-Fowlers Datetime: 10/24/2023 15:30 Pain Coping: Talking Through Contractions Datetime: 10/24/2023 15:09 Communication Comments: Patient reports inadequate relief from epidural despite using button Datetime: 10/24/2023 14:09 Category: Category I Notification Reason: Status Update Datetime: 10/24/2023 13:52 I/O Interventions: Busch Cath Inserted Datetime: 10/24/2023 13:50 SpO2 (%): 99 Datetime: 10/24/2023 13:05 MEDICATIONS Pitocin (milliunits): Increased to @ 10 Datetime: 10/24/2023 12:00 Membrane Status: Intact PATIENT CARE Oxygen Method: Room Air Provider Reviewed Strip: Yes Datetime: 10/24/2023 11:35 Epidural Procedure: Test Dose Datetime: 10/24/2023 11:23 PROCEDURE TIME OUT Procedure Verify: Correct Patient Identity; Correct Side and Site are Marked; Accurate Procedure Co nsent Form; Agreement on Procedure to be Done; Correct Patient Position; Safety Precautions Based on Patient History or Medication Use ANESTHESIA Anesthesia Plans: Epidural Epidural Positioning: Sitting Datetime: 10/24/2023 10:45 Pain Relief Measures: Comfort Measures Comfort Measures: Breathing/Relaxation Datetime: 10/24/2023 09:45 Membranes Ruptured Date/Time: 10/24/2023 09:45 Membranes Rupture Method: Artificial Amniotic Fluid Color: Clear Amniotic Fluid Amount: Moderate Amniotic Fluid Odor: Normal Datetime: 10/24/2023 06:49 Monitor Interventions for FHR: Ultrasound Adjusted Datetime: 10/24/2023 06:48 Comments: tracing maternal HR Datetime: 10/24/2023 04:54 Bedside Blood Glucose: 89 Datetime: 10/24/2023 04:05 Medication Comments: pitocin at 4mu/mi Datetime: 10/24/2023 00:05 Analgesics/Sedatives: Fentanyl (mcg) @ 0005 Datetime: 10/23/2023 18:30 Contraction Comments: Periods of tachysystole noted when patient ambulating. PO fluids provided and encouraged, encouraged to void. Datetime: 10/23/2023 18:16 Patient Care Comments: Walking in hallway w/ sig. other Datetime: 10/23/2023 18:10 Pain Goal: 4 Datetime: 10/23/2023 14:30 MATERNAL ASSESSMENT Level of Consciousness: Alert Headache: Denies Nausea/Vomiting: Denies RUQ Epigastric Pain: Denies Datetime: 10/23/2023 14:22 Cervical Ripening Agents: Cervidil Datetime: 10/23/2023 10:08 Breath Sounds, Left: Clear and Equal Breath Sounds, Right: Clear and Equal
== END 2023-10-26 13:45 | disposition home or self-care (01) | DRG 806 ==
LOC: WFO 07:54 → FBP 07:55 → WFO 08:04 → FBP 08:05
PROVIDERS: ADMIT Obstetrics & Gynecology; ATTEND Obstetrics & Gynecology
PROC: 3E033VJ Introduction of Other Hormone into Peripheral Vein, Percutaneous Approach (ICD-10-PCS; 2023-10-23)
PROC: 3E0P7VZ Introduction of Hormone into Female Reproductive, Via Natural or Artificial Opening (ICD-10-PCS; 2023-10-23)
PROC: 10E0XZZ Delivery of Products of Conception, External Approach (ICD-10-PCS; principal; 2023-10-24)
PROC: 0HQ9XZZ Repair Perineum Skin, External Approach (ICD-10-PCS; 2023-10-24)
PROC: 10907ZC Drainage of Amniotic Fluid, Therapeutic from Products of Conception, Via Natural or Artificial Opening (ICD-10-PCS; 2023-10-24)
DX: O13.4 Gestational [pregnancy-induced] hypertension without significant proteinuria, complicating childbirth (principal); O98.52 Other viral diseases complicating childbirth; Z37.0 Single live birth; Z3A.37 37 weeks gestation of pregnancy; O70.0 First degree perineal laceration during delivery; B00.9 Herpesviral infection, unspecified; O24.420 Gestational diabetes mellitus in childbirth, diet controlled; Z79.899 Other long term (current) drug therapy; O71.82 Other specified trauma to perineum and vulva
CPT/HCPCS: 36415; 59409; 80053; 82570; 84156; 85025; 86850; 86900; 86901; A9270; J7120

== ENCOUNTER 2023-12-06 08:13 | Outpatient (CLI) | payer OTHER ==
[2023-12-06 08:40] LABS: GTT GLUCOSE,FASTING 80 mg/dL (74-109)
== END 2023-12-06 08:14 | disposition home or self-care (01) ==
LOC: LAB 08:13
PROVIDERS: ATTEND Obstetrics & Gynecology
DX: O24.419 Gestational diabetes mellitus in pregnancy, unspecified control (principal)
CPT/HCPCS: 36415; 82951